=== PATIENT | male | born 1975 | race Two or more races ===

== ENCOUNTER 2018-07-02 11:34 | Emergency (ER) | payer BC ==
[~2018-07-02] VITALS: Ht 170.2 cm; Wt 69.5 kg
[2018-07-02 11:43] VITALS: BP 127/85; PULSE 111; RESP 20; Ht 170.2 cm; Wt 69.5 kg
--- NOTE | 2018-07-02 12:35 | ERD ---
ER Documentation Chief Complaint Chief Complaint c/o flu like symptoms x6 days HPI 42-year-old male presents to the emergency department with acute onset of worsening of right ear pain during the last 24 hours, associated with fever, runny nose, chest congestion, dry cough and general malaise that started 6 days ago. The patient has been receiving [id number] medications without improvement of the symptoms. Otherwise, no shortness of breath, no rashes, no diarrhea or constipation. ROS All systems reviewed and are negative except as per history of present illness. Medications Home Meds Active Scripts Diphenhydramine Hcl* (Benadryl*) 25 Mg Cap, 25 MG PO BID PRN for COUGH, #30 TAB Prov:NAKUL CHRISTENSEN MD 07/02/18 Albuterol Sulfate* (Proair HFA*) 8.5 Gm Hfa.aer.ad, 2 PUFF INH Q4 for 7 Days, #1 INHALER Prov:NAKUL CHRISTENSEN MD 07/02/18 Ibuprofen* (Motrin*) 600 Mg Tab, 600 MG PO Q6H PRN for PAIN AND OR ELEVATED TEMP, #12 TAB Prov:NAKUL CHRISTENSEN MD 07/02/18 Azithromycin* (Zithromax*) 250 Mg Tablet, 250 MG PO .ZPACK DIRECTED, #6 TAB TAKE 500 MG (2 TABS) THE FIRST DAY THEN 250 MG (1 TAB) DAYS 2-5 Prov:NAKUL CHRISTENSEN MD 07/02/18 PMhx/Soc Medical and Surgical Hx: pt denies Medical Hx, pt denies Surgical Hx Hx Alcohol Use: No Hx Substance Use: No Hx Tobacco Use: No Smoking Status: Never smoker Physical Exam Vitals Vital Signs Date Temp Pulse Resp B/P (MAP) Pulse Ox O2 O2 Flow FiO2 Time Delivery Rate 07/02/18 99.4 111 20 127/85 99 11:43 (99) Physical Exam Patient alert, oriented, vital signs stable. HEENT: Normocephalic, atraumatic. EYES: PERRLA, EOMI, Sclera and conjunctiva appear normal. EARS: Right ear with significant tympanic membrane erythema, retraction and opacity with edema of the canal. Contralateral ear normal. THROAT: Erythematous oropharynx. NECK: Supple, No lymphadenopathy. Full ROM without pain or tenderness. HEART: RRR, no rubs, murmurs, clicks or gallops. LUNGS: Rhonchi to auscultation. ABDOMEN: Soft, non-tender without masses or hepatosplenomegaly. EXTREMITIES: No edema bilaterally. BACK: Full ROM, no deformity, normal back exam NEURO: Cranial nerves grossly intact, no motor or sensory deficit Procedures/MDM Vital signs stable, differential diagnosis include but not limited to: infection bacterial/viral/fungal. Tonsillitis, eustachian dysfunction, allergies, foreign body, cholesteatoma. Less likely mastoiditis, malignant otitis, meningitis. Physical examination and clinical presentation consistent most likely with viral bronchitis and right otitis media. During the ED course the patient remained stable, no new complaints. Clinical impression discussed with patient who agrees with management. The patient is stable to be treated outpatient and will be discharged home with a Rx for antibiotics and ibuprofen. Some side effects of prescribed medications (headache, rash, nausea, vomiting, diarrhea, interactions with other medications) were reviewed. The patient was instructed to follow up with the primary care provider in the next 48h. If symptoms persist, worsen or new symptoms develop, then patient should return to the ED immediately. Disclaimer: Inadvertent spelling and grammatical errors are likely due to EHR/dictation software use and do not reflect on the overall quality of patient care. Also, please note that the electronic time recorded on this note does not necessarily reflect the actual time of the patient encounter. Departure Diagnosis: Primary Impression: Fever Additional Impressions: Abnormal respiratory sounds Right otitis media Condition: Stable Additional Instructions: Thank you very much for allowing us to participate in your care. Your health and safety is our top priority at [facility]. Call your primary care doctor TOMORROW for an appointment during the next 2-4 days and bring all the information and medications prescribed. Have prescriptions filled and follow precisely the directions on the label. If the symptoms get worse and your provider is unavailable, return to the Emergency Department immediately. NAKUL CHRISTENSEN MD Jul 02, 2018 12:35
[2018-07-02] MEDS ORDERED: IBUP-1542 PO (12:38)
[2018-07-02] MEDS ORDERED: AZIT250T PO (12:38)
[2018-07-02] MEDS ORDERED: BEN25 PO (12:38)
[2018-07-02] MEDS ORDERED: ALBU8.5H8 INH (12:38)
== END 2018-07-02 12:53 | disposition home or self-care (01) ==
LOC: FTE 11:34
DX: H66.91 Otitis media, unspecified, right ear (principal); R09.89 Other specified symptoms and signs involving the circulatory and respiratory systems
CPT/HCPCS: 99283

== ENCOUNTER → 2018-11-23 | Outpatient (CLI) | payer BC ==
[~2018-11-23] MED LIST: ALBU8.5H8 INH; AZIT250T PO; BEN25 PO; IBUP-1542 PO
== END | disposition home or self-care (01) ==
LOC: LAB 11-22 07:41
PROVIDERS: ATTEND Internal Medicine
DX: E78.5 Hyperlipidemia, unspecified (principal); N40.0 Benign prostatic hyperplasia without lower urinary tract symptoms; R73.03 Prediabetes; E55.9 Vitamin D deficiency, unspecified; E03.9 Hypothyroidism, unspecified
CPT/HCPCS: 80053; 80061; 81003; 82306; 83036; 84153; 84154; 85025